=== PATIENT | male | born 1950 | race Caucasian/White ===

== ENCOUNTER 2017-10-31 17:18 | Inpatient (IN) | payer MEDICARE, BC ==
[~2017-10-31] VITALS: Ht 188 cm; Wt 157.2 kg
[2017-10-31] MEDS ORDERED: SODIUM CHLORIDE 0.9% 1,000 ML IVB ONE (17:55)
[2017-10-31 19:18] LABS: Basophils # (auto) 0 uL; Basophils % (auto) 0.4 % (0.0-2.0); Eosinophils # (auto) 0.1 uL; Eosinophils % (auto) 2.2 % (0.0-7.0); Hematocrit 38.4 % (41.0-53.0); Hemoglobin 12.7 g/dL (13.5-17.5); Lymphocytes # (auto) 0.8 uL; Lymphocytes % (auto) 15.6 % (10.0-50.0); Mean Corpuscular Hemoglobin 32.1 pg (28.0-32.0); Mean Corpuscular Hgb Conc. 33.1 g/dL (32.0-36.0); Monocytes # (auto) 0.6 uL; Monocytes % (auto) 12.1 % (0.0-12.0); Neutrophils # (auto) 3.6 uL; Neutrophils % (auto) 69.7 % (37.0-80.0); Nucleated Red Blood Cells % 0.1 %; Platelet Count (auto) 149 10^3/uL (140-450); Red Blood Cells 3.96 10^6/uL (4.5-5.90); Red Cell Distribution Width 13.5 % (11.8-14.3); White Blood Cell 5.2 10^3/uL (4.4-10.8)
[2017-10-31 19:34] LABS: Urine Bacteria NONE SEEN /hpf (None Seen); Urine Blood 3+ /uL (Negative); Urine Specific Gravity 1.016 (1.001-1.035); Urine WBC 2 /hpf (0 - 3)
[2017-10-31 19:36] LABS: INR 0.92 (0.9-1.15); Partial Thromboplastin Time 27.5 sec (22.64-33.71)
[2017-10-31 19:51] LABS: Albumin 3.6 g/dL (3.4-5.0); BUN/Creatinine Ratio 27.7; Calcium 8.9 mg/dL (8.5-10.1); Magnesium 1.9 mg/dL (1.6-2.6); Potassium 4.2 mmol/L (3.5-5.1)
[2017-10-31 19:59] LABS: Bilirubin, Total 0.5 mg/dL (0.2-1.0); Total Protein 7.6 g/dL (6.4-8.2)
[2017-10-31] MEDS ORDERED: cefTRIAXone 1GM/10ml IVPUSH 10 ML IV ONE (20:00)
[2017-10-31] MEDS ORDERED: ONDANSETRON HCL 4 MG/2 ML VIAL IV PRN (21:45)
[2017-10-31] MEDS ORDERED: ACETAMINOPHEN 500 MG TAB PO PRN (21:45)
[2017-10-31] MEDS ORDERED: DEXTROSE (50%) 50ML SYRG IV PRN (21:45)
[2017-10-31] MEDS ORDERED: MORPHINE SULFATE 4 MG/ML SYR/VIAL IV PRN (21:45)
[2017-10-31] MEDS ORDERED: HYDROcodone-ACET 5/325MG TAB PO PRN (21:45)
[2017-10-31] MEDS: InsuLIN REG 1unit/0.01ml Soln (100units/ml) SC SCH (22:00)
[2017-10-31] MEDS: ATORVASTATIN 20 MG TAB PO SCH (22:00)
[2017-10-31] MEDS: ACCU-CHEK COMFORT CURVE STRIP VI SCH (22:28)
[2017-10-31 23:25] VITALS: BP 151/68
[2017-10-31 23:50] VITALS: BP 151/68
[2017-11-01] MEDS ORDERED: METF-372 PO (02:17)
[2017-11-01] MEDS ORDERED: CELE200C PO (02:17)
[2017-11-01] MEDS ORDERED: GLIP-116 PO (02:17)
[2017-11-01] MEDS ORDERED: LOSA100T25 PO (02:20)
[2017-11-01] MEDS ORDERED: CHOL20007 PO (02:20)
[2017-11-01] MEDS ORDERED: B-COCAP34 OR (02:20)
[2017-11-01] MEDS ORDERED: FURO40TA4 PO (02:20)
[2017-11-01] MEDS ORDERED: NITR1SPR TL (02:20)
[2017-11-01] MEDS ORDERED: INSU1INJ19 SC (02:20)
[2017-11-01] MEDS ORDERED: ASPI-231 PO (02:20)
[2017-11-01] MEDS ORDERED: OMEG500C PO (02:20)
[2017-11-01 05:00] VITALS: BP 132/54
[2017-11-01] MEDS: InsuLIN REG 1unit/0.01ml Soln (100units/ml) SC SCH ×4 (06:23→22:51)
[2017-11-01] MEDS: ACCU-CHEK COMFORT CURVE STRIP VI SCH ×4 (06:23→22:00)
[2017-11-01 06:57] LABS: Basophils # (auto) 0 uL; Basophils % (auto) 0.5 % (0.0-2.0); Eosinophils # (auto) 0.1 uL; Eosinophils % (auto) 3.8 % (0.0-7.0); Hematocrit 34.6 % (41.0-53.0); Hemoglobin 11.6 g/dL (13.5-17.5); Lymphocytes % (auto) 27.5 % (10.0-50.0); Mean Corpuscular Hemoglobin 32.4 pg (28.0-32.0); Mean Corpuscular Hgb Conc. 33.4 g/dL (32.0-36.0); Mean Corpuscular Volume 96.9 fL (80.0-100.0); Monocytes # (auto) 0.5 uL; Monocytes % (auto) 12.9 % (0.0-12.0); Neutrophils # (auto) 2.1 uL; Neutrophils % (auto) 55.3 % (37.0-80.0); Nucleated Red Blood Cells % 0.2 %; Platelet Count (auto) 137 10^3/uL (140-450); Red Blood Cells 3.57 10^6/uL (4.5-5.90); Red Cell Distribution Width 13.6 % (11.8-14.3); White Blood Cell 3.8 10^3/uL (4.4-10.8)
[2017-11-01 07:31] LABS: BUN/Creatinine Ratio 29.6; Calcium 8.1 mg/dL (8.5-10.1); Potassium 4.4 mmol/L (3.5-5.1)
[2017-11-01 09:06] VITALS: BP 146/70
[2017-11-01 12:18] VITALS: BP 152/70
[2017-11-01] MEDS: SODIUM CHLORIDE 0.9% 1,000 ML IV SCH (15:35)
[2017-11-01 16:44] VITALS: BP 135/66
[2017-11-01] MEDS: MULTIPLE VITAMIN TAB PO SCH (18:28)
[2017-11-01] MEDS: cloNIDine HCL 0.1 MG TAB PO PRN (21:05)
[2017-11-01] MEDS: ASCORBIC ACID 500 MG TAB PO SCH (22:51)
[2017-11-01] MEDS: ATORVASTATIN 20 MG TAB PO SCH (22:51)
[2017-11-02] MEDS: SODIUM CHLORIDE 0.9% 1,000 ML IV SCH ×3 (02:09→17:29)
[2017-11-02 05:16] VITALS: BP 153/77
[2017-11-02] MEDS: cloNIDine HCL 0.1 MG TAB PO PRN (05:34)
[2017-11-02 06:38] LABS: Basophils # (auto) 0 uL; Basophils % (auto) 0.5 % (0.0-2.0); Eosinophils # (auto) 0.2 uL; Eosinophils % (auto) 4.5 % (0.0-7.0); Hematocrit 33.8 % (41.0-53.0); Hemoglobin 11.5 g/dL (13.5-17.5); Lymphocytes % (auto) 21.9 % (10.0-50.0); Monocytes # (auto) 0.5 uL; Neutrophils # (auto) 2.8 uL; Neutrophils % (auto) 62.1 % (37.0-80.0); Platelet Count (auto) 140 10^3/uL (140-450); Red Blood Cells 3.49 10^6/uL (4.5-5.90); Red Cell Distribution Width 13.3 % (11.8-14.3); White Blood Cell 4.5 10^3/uL (4.4-10.8)
[2017-11-02 06:46] LABS: Calcium 8.8 mg/dL (8.5-10.1); Potassium 4.3 mmol/L (3.5-5.1)
[2017-11-02] MEDS: ACCU-CHEK COMFORT CURVE STRIP VI SCH ×4 (07:13→22:14)
[2017-11-02] MEDS: InsuLIN REG 1unit/0.01ml Soln (100units/ml) SC SCH ×4 (07:13→22:14)
[2017-11-02 09:00] VITALS: BP 140/52
[2017-11-02] MEDS: ASCORBIC ACID 500 MG TAB PO SCH ×2 (09:38→22:14)
[2017-11-02] MEDS: MULTIPLE VITAMIN TAB PO SCH (09:38)
[2017-11-02] MEDS: cefTRIAXone 1GM/10ml IVPUSH 10 ML IV SCH (09:39)
[2017-11-02 13:00] VITALS: BP 164/68
[2017-11-02] MEDS: LOSARTAN POTASSIUM 50 MG TAB PO SCH (15:03)
[2017-11-02 17:00] VITALS: BP 146/72
[2017-11-02] MEDS: glipiZIDE 5 MG TAB PO SCH (17:25)
[2017-11-02] MEDS: metFORMIN HYDROCHLORIDE 500 MG TAB PO SCH (17:26)
[2017-11-02 22:00] VITALS: BP 149/69
[2017-11-02] MEDS: ATORVASTATIN 20 MG TAB PO SCH (22:13)
[2017-11-03 03:35] LABS: Basophils # (auto) 0 uL; Basophils % (auto) 0.4 % (0.0-2.0); Eosinophils # (auto) 0.2 uL; Hematocrit 33.3 % (41.0-53.0); Hemoglobin 11.2 g/dL (13.5-17.5); Lymphocytes # (auto) 1.1 uL; Lymphocytes % (auto) 16.1 % (10.0-50.0); Mean Corpuscular Hemoglobin 32.7 pg (28.0-32.0); Mean Corpuscular Hgb Conc. 33.8 g/dL (32.0-36.0); Mean Corpuscular Volume 96.6 fL (80.0-100.0); Monocytes # (auto) 0.7 uL; Neutrophils # (auto) 4.8 uL; Neutrophils % (auto) 70.5 % (37.0-80.0); Platelet Count (auto) 152 10^3/uL (140-450); Red Blood Cells 3.44 10^6/uL (4.5-5.90); Red Cell Distribution Width 13.5 % (11.8-14.3); White Blood Cell 6.8 10^3/uL (4.4-10.8)
[2017-11-03 03:42] LABS: BUN/Creatinine Ratio 22.4; Calcium 8.2 mg/dL (8.5-10.1); INR 0.95 (0.9-1.15); Partial Thromboplastin Time 25.5 sec (22.64-33.71); Potassium 4.4 mmol/L (3.5-5.1); Prothrombin Time 10.4 sec (9.37-12.3)
[2017-11-03 06:21] VITALS: BP 157/78
[2017-11-03] MEDS: metFORMIN HYDROCHLORIDE 500 MG TAB PO SCH ×2 (06:40→18:09)
[2017-11-03] MEDS: InsuLIN REG 1unit/0.01ml Soln (100units/ml) SC SCH ×4 (06:41→21:59)
[2017-11-03] MEDS: glipiZIDE 5 MG TAB PO SCH ×2 (06:41→18:08)
[2017-11-03] MEDS: ACCU-CHEK COMFORT CURVE STRIP VI SCH ×4 (06:41→22:02)
[2017-11-03] MEDS: SODIUM CHLORIDE 0.9% 1,000 ML IV SCH ×2 (06:42→12:01)
[2017-11-03] MEDS ORDERED: LIDOCAINE HCL 2 %PF INJ 10ML AMP IJ ONE (07:56)
[2017-11-03] MEDS ORDERED: GLYCOPYRROLATE 0.2 MG/ML 1ML VIAL ONE (08:09)
[2017-11-03] MEDS ORDERED: NEOSTIGMINE 1 MG/ML INJ (10mg/10ML VIAL) ONE (08:09)
[2017-11-03 08:29] VITALS: BP 160/72
[2017-11-03] MEDS ORDERED: ceFAZolin 1GM/50ML 50 ML IV ONE (08:37)
[2017-11-03] MEDS ORDERED: SUCCINYLCHOLINE CHLORIDE 20 MG/ML 10ML VIAL IV ONE (08:49)
[2017-11-03] MEDS ORDERED: MIDAZOLAM HCL 1MG/1ML-2 ML VIAL ONE (08:55)
[2017-11-03] MEDS ORDERED: METOCLOPRAMIDE HCL 5MG/ml INJ 2ml VIAL ONE (08:55)
[2017-11-03] MEDS ORDERED: LIDOCAINE HCL 2% TOP JELLY 5ML TOP ONE (08:57)
[2017-11-03] MEDS ORDERED: fentaNYL CITRATE 100 MCG/2 ML VL ONE (09:12)
[2017-11-03] MEDS ORDERED: ESMOLOL HCL 10 ML IV ONE (09:13)
[2017-11-03] MEDS ORDERED: ACCU-CHEK COMFORT CURVE STRIP VI ONE (09:15)
[2017-11-03] MEDS ORDERED: NALOXONE HCL 0.4 MG/ML VIAL IV PRN (09:15)
[2017-11-03] MEDS ORDERED: MORPHINE SULFATE 4 MG/ML SYR/VIAL IV PRN (09:15)
[2017-11-03] MEDS ORDERED: ONDANSETRON HCL 4 MG/2 ML VIAL IV ONE (09:15)
[2017-11-03] MEDS ORDERED: hydrALAZINE HCL 20 MG/ML VL IV PRN (09:15)
[2017-11-03] MEDS ORDERED: DEXAMETHASONE SOD PHOS 10MG/1ML VIAL INJ ONE (09:35)
[2017-11-03] MEDS: LOSARTAN POTASSIUM 50 MG TAB PO SCH (11:36)
[2017-11-03] MEDS: MULTIPLE VITAMIN TAB PO SCH (11:36)
[2017-11-03] MEDS: cefTRIAXone 1GM/10ml IVPUSH 10 ML IV SCH (11:37)
[2017-11-03] MEDS: ASCORBIC ACID 500 MG TAB PO SCH ×2 (11:37→21:59)
[2017-11-03 12:23] VITALS: BP 183/85
[2017-11-03] MEDS ORDERED: DEXTROSE (50%) 50ML SYRG IV PRN (13:15)
[2017-11-03] MEDS: amLODIPine BESYLATE 5 MG TAB PO SCH (14:13)
[2017-11-03 16:27] VITALS: BP 157/84
[2017-11-03 21:45] VITALS: BP 144/70
[2017-11-03] MEDS: ATORVASTATIN 20 MG TAB PO SCH (21:59)
[2017-11-04] MEDS: SODIUM CHLORIDE 0.9% 1,000 ML IV SCH ×3 (01:26→21:00)
[2017-11-04 05:59] VITALS: BP 152/67
[2017-11-04 06:16] LABS: Basophils # (auto) 0 uL; Basophils % (auto) 0.1 % (0.0-2.0); Eosinophils # (auto) 0 uL; Eosinophils % (auto) 0.1 % (0.0-7.0); Hemoglobin 11.6 g/dL (13.5-17.5); Lymphocytes # (auto) 1.1 uL; Lymphocytes % (auto) 10.2 % (10.0-50.0); Mean Corpuscular Volume 96.9 fL (80.0-100.0); Monocytes # (auto) 0.8 uL; Monocytes % (auto) 7.6 % (0.0-12.0); Neutrophils # (auto) 8.9 uL; Platelet Count (auto) 165 10^3/uL (140-450); Red Blood Cells 3.61 10^6/uL (4.5-5.90); Red Cell Distribution Width 13.5 % (11.8-14.3); White Blood Cell 10.9 10^3/uL (4.4-10.8)
[2017-11-04] MEDS: metFORMIN HYDROCHLORIDE 500 MG TAB PO SCH ×2 (06:26→17:41)
[2017-11-04] MEDS: glipiZIDE 5 MG TAB PO SCH ×2 (06:27→17:41)
[2017-11-04] MEDS: InsuLIN REG 1unit/0.01ml Soln (100units/ml) SC SCH ×4 (06:27→22:11)
[2017-11-04] MEDS: ACCU-CHEK COMFORT CURVE STRIP VI SCH ×4 (06:28→21:37)
[2017-11-04 06:50] LABS: BUN/Creatinine Ratio 21.8; Calcium 8.2 mg/dL (8.5-10.1); Potassium 4.6 mmol/L (3.5-5.1)
[2017-11-04 09:00] VITALS: BP 150/62
[2017-11-04 09:36] VITALS: BP 152/67
[2017-11-04] MEDS: ALBUTEROL SULF 2.5 MG/0.5ML(0.5%) NEB SOLN NEB SCH ×3 (11:02→19:34)
[2017-11-04] MEDS: BUDESONIDE (INHALATION) 0.5 MG/2 ML NEB NEB SCH ×2 (11:02→19:32)
[2017-11-04] MEDS: ASCORBIC ACID 500 MG TAB PO SCH ×2 (11:49→22:11)
[2017-11-04] MEDS: MULTIPLE VITAMIN TAB PO SCH (11:49)
[2017-11-04] MEDS: LOSARTAN POTASSIUM 50 MG TAB PO SCH (11:50)
[2017-11-04] MEDS: cefTRIAXone 1GM/10ml IVPUSH 10 ML IV SCH (11:50)
[2017-11-04] MEDS: PIOGLITAZONE HYDROCHLORIDE 30 MG TAB PO SCH (11:53)
[2017-11-04] MEDS: amLODIPine BESYLATE 5 MG TAB PO SCH (12:10)
[2017-11-04 13:00] VITALS: BP 158/67
[2017-11-04 17:00] VITALS: BP 161/74
[2017-11-04] MEDS: cloNIDine HCL 0.1 MG TAB PO PRN (17:41)
[2017-11-04 22:00] VITALS: BP 155/75
[2017-11-04] MEDS: ATORVASTATIN 20 MG TAB PO SCH (22:12)
[2017-11-05] MEDS: ALBUTEROL SULF 2.5 MG/0.5ML(0.5%) NEB SOLN NEB SCH ×3 (00:28→12:23)
[2017-11-05 05:00] VITALS: BP 154/76
[2017-11-05] MEDS: BUDESONIDE (INHALATION) 0.5 MG/2 ML NEB NEB SCH (06:28)
[2017-11-05] MEDS: ACCU-CHEK COMFORT CURVE STRIP VI SCH ×2 (06:33→11:40)
[2017-11-05] MEDS: SODIUM CHLORIDE 0.9% 1,000 ML IV SCH (06:37)
[2017-11-05] MEDS: glipiZIDE 5 MG TAB PO SCH (06:38)
[2017-11-05] MEDS: metFORMIN HYDROCHLORIDE 500 MG TAB PO SCH (06:38)
[2017-11-05] MEDS: InsuLIN REG 1unit/0.01ml Soln (100units/ml) SC SCH ×2 (06:39→11:40)
[2017-11-05 07:30] LABS: Basophils # (auto) 0 uL; Basophils % (auto) 0.3 % (0.0-2.0); Eosinophils # (auto) 0.1 uL; Eosinophils % (auto) 1.7 % (0.0-7.0); Hematocrit 32.9 % (41.0-53.0); Lymphocytes # (auto) 0.9 uL; Lymphocytes % (auto) 10.8 % (10.0-50.0); Mean Corpuscular Hemoglobin 32.5 pg (28.0-32.0); Mean Corpuscular Hgb Conc. 33.4 g/dL (32.0-36.0); Mean Corpuscular Volume 97.3 fL (80.0-100.0); Monocytes # (auto) 0.8 uL; Monocytes % (auto) 9.5 % (0.0-12.0); Neutrophils # (auto) 6.6 uL; Neutrophils % (auto) 77.7 % (37.0-80.0); Platelet Count (auto) 170 10^3/uL (140-450); Red Blood Cells 3.38 10^6/uL (4.5-5.90); Red Cell Distribution Width 13.3 % (11.8-14.3); White Blood Cell 8.5 10^3/uL (4.4-10.8)
[2017-11-05 07:50] LABS: Calcium 8.2 mg/dL (8.5-10.1); Potassium 4.7 mmol/L (3.5-5.1)
[2017-11-05 07:53] LABS: BUN/Creatinine Ratio 23.5
[2017-11-05] MEDS: cefTRIAXone 1GM/10ml IVPUSH 10 ML IV SCH (08:47)
[2017-11-05] MEDS: cloNIDine HCL 0.1 MG TAB PO PRN (08:47)
[2017-11-05 09:00] VITALS: BP 162/88
[2017-11-05] MEDS: LOSARTAN POTASSIUM 50 MG TAB PO SCH (10:15)
[2017-11-05] MEDS: MULTIPLE VITAMIN TAB PO SCH (10:15)
[2017-11-05] MEDS: ASCORBIC ACID 500 MG TAB PO SCH (10:15)
[2017-11-05] MEDS: amLODIPine BESYLATE 5 MG TAB PO SCH (10:16)
[2017-11-05] MEDS: PIOGLITAZONE HYDROCHLORIDE 30 MG TAB PO SCH (10:18)
[2017-11-05 12:52] VITALS: BP 136/73
[2017-11-05 13:00] VITALS: BP 136/73
[2017-11-05] MEDS ORDERED: PRO-STAT 64 30ML PO SCH (18:00)
== END 2017-11-05 19:06 | disposition home or self-care (01) | DRG 668 ==
LOC: ER 17:26 → OVERFLOW 17:27 → EAST 23:17
PROVIDERS: ADMIT Nurse Practitioner Family; ATTEND Internal Medicine
PROC: 0TBB8ZZ Excision of Bladder, Via Natural or Artificial Opening Endoscopic (ICD-10-PCS; principal; 2017-11-03 08:54)
DX: D41.4 Neoplasm of uncertain behavior of bladder (principal); N17.0 Acute kidney failure with tubular necrosis; E11.22 Type 2 diabetes mellitus with diabetic chronic kidney disease; E11.65 Type 2 diabetes mellitus with hyperglycemia; C61 Malignant neoplasm of prostate; D64.9 Anemia, unspecified; N18.3 Chronic kidney disease, stage 3 (moderate); N39.0 Urinary tract infection, site not specified; Z68.41 Body mass index [BMI] 40.0-44.9, adult; G47.33 Obstructive sleep apnea (adult) (pediatric); E66.9 Obesity, unspecified; R33.9 Retention of urine, unspecified; R31.0 Gross hematuria; K57.90 Diverticulosis of intestine, part unspecified, without perforation or abscess without bleeding; I12.9 Hypertensive chronic kidney disease with stage 1 through stage 4 chronic kidney disease, or unspecified chronic kidney disease; N13.9 Obstructive and reflux uropathy, unspecified; J45.909 Unspecified asthma, uncomplicated; Z82.49 Family history of ischemic heart disease and other diseases of the circulatory system; Z85.46 Personal history of malignant neoplasm of prostate; Z90.79 Acquired absence of other genital organ(s)
CPT/HCPCS: 36415; 51702; 71045; 74176; 80048; 80053; 81001; 82962; 83036; 83735; 84154; 85025; 85610; 85730; 86850; 86900; 86901; 93005; 94640; 94660; 94761; 96361; 96374; J0330; J0690; J1100; J1815; J2250